=== PATIENT | female | born 1960 | race Caucasian/White ===

== ENCOUNTER 2021-01-27 15:10 | Emergency (ER) | payer OTHER ==
[2021-01-27 15:20] VITALS: BP 182/77; PULSE 72; O2SAT 98
--- NOTE | 2021-01-27 15:48 | ERPHSYRPT ---
- History of Present Illness Time Seen by Provider: 01/27/21 15:20 Source: patient Exam Limitations: no limitations Patient Subjective Stated Complaint: PT states "I work at [employer] and a large cart fell over on my left foot this mornig around 10 am." Triage Nursing Assessment: Pt presented alert and oriented X 3, skin pwd pt ambulates with a limp, left dorsal foot slight swelling and bruising noted. tenderness to touch. Physician History: Patient is a 60-year-old female presents to our ED as a referral from her employer for evaluation of pain to the dorsum of her left foot. Patient works at [employer]. At approximately 1030 this morning patient states a heavy cart rolled over her left foot. Patient did not immediately seek medical attention. Patient's foot is now swollen bruised and tender. Patient is concerned she may have a fracture. No other injuries reported. Pain described as an ache that is well localized. No radiation. Pain worse with palpation and weightbearing. Patient voices no other complaints or concerns at this time. Method of Injury: direct blow Occurred: this morning Quality: constant Severity of Pain-Max: moderate Severity of Pain-Current: mild Lower Extremities Pain: foot: left Modifying Factors: Improves With: movement Associated Symptoms: none Allergies/Adverse Reactions: Penicillins Allergy (Verified 01/28/16 06:15) Sulfa (Sulfonamide Antibiotics) Allergy (Verified 01/28/16 06:15) Home Medications: Multivit with Calcium,Iron,Min [Womens Multiple Vitamins] 1 each PO DAILY 01/28/16 [History] Hx Tetanus, Diphtheria Vaccination/Date Given: Yes Hx Influenza Vaccination/Date Given: Yes Hx Pneumococcal Vaccination/Date Given: No Immunizations Up to Date: Yes Travel Risk - International Travel Have you traveled outside of the country in past 3 weeks: No - Coronavirus Screening Are you exhibiting any of the following symptoms?: No Close contact with a COVID-19 positive Pt in past 14-21 Days: No - Vaccine Status Have you recieved a Covid-19 vaccination: Yes [employer]: [facility] - Vaccination Dates Date of 2cond Vaccination (if applicable): - Review of Systems Constitutional: No Symptoms, No Fever, No Chills Eyes: No Symptoms Ears, Nose, & Throat: No Symptoms Respiratory: No Symptoms, No Cough, No Dyspnea Cardiac: No Symptoms, No Chest Pain, No Edema, No Syncope Abdominal/Gastrointestinal: No Symptoms, No Abdominal Pain, No Nausea, No Vomiting, No Diarrhea Genitourinary Symptoms: No Symptoms, No Dysuria Musculoskeletal: No Symptoms, No Back Pain, No Neck Pain Skin: No Symptoms, No Rash Neurological: No Symptoms, No Dizziness, No Focal Weakness, No Sensory Changes Psychological: No Symptoms Endocrine: No Symptoms Hematologic/Lymphatic: No Symptoms Immunological/Allergic: No Symptoms All Other Systems: Reviewed and Negative - Past Medical History Pertinent Past Medical History: Yes Neurological History: No Pertinent History ENT History: No Pertinent History Cardiac History: No Pertinent History Respiratory History: COPD, Sleep Apnea Endocrine Medical History: No Pertinent History Musculoskeletal History: No Pertinent History GI Medical History: Hernia, Other History: No Pertinent History Psycho-Social History: No Pertinent History Female Reproductive Disorders: No Pertinent History, Other Other Medical History: states she has a history of benign throat growths removed ten years ago - Past Surgical History Past Surgical History: Yes Neuro Surgical History: No Pertinent History Cardiac: No Pertinent History Respiratory: No Pertinent History Gastrointestinal: No Pertinent History Genitourinary: No Pertinent History Female Surgical History: Hysterectomy Other Surgical History: pt states she had polyps removed from her vocal cords in 2001. Breast reduction - Social History Smoking Status: Current every day smoker How long have you smoked: years Exposure to second hand smoke: Yes Drug Use: none Patient Lives Alone: Yes - Female History Hx Now: No - Nursing Vital Signs Nursing Vital Signs: Initial Vital Signs Temperature 97.7 F 01/27/21 15:16 Pulse Rate 72 01/27/21 15:16 Respiratory Rate 20 01/27/21 15:16 Blood Pressure 182/77 01/27/21 15:16 O2 Sat by Pulse Oximetry 98 01/27/21 15:16 Pain Scale Pain Intensity 7 - Physical Exam General Appearance: no apparent distress, alert Eyes, Ears, Nose, Throat Exam: normal ENT inspection, TMs normal, pharynx normal, moist mucous membranes Neck Exam: normal inspection, non-tender, supple, full range of motion Cardiovascular/Respiratory Exam: chest non-tender, normal breath sounds, regular rate/rhythm, heart sounds normal, no respiratory distress Gastrointestinal/Abdominal Exam: non-tender, soft, No guarding, No tenderness Back Exam: normal inspection, normal range of motion, No vertebral tenderness Hips Exam: bilateral: non-tender, normal inspection, normal range of motion, no evidence of injury Legs Exam: bilateral leg: non-tender, normal inspection, normal range of motion, no evidence of injury Knees Exam: bilateral knee: non-tender, normal inspection, normal range of motion, no evidence of injury Ankle Exam: bilateral ankle: non-tender, normal inspection, normal range of motion, no evidence of injury Foot Exam: right foot: non-tender, normal inspection, normal range of motion, no evidence of injury, left foot: ecchymosis, pain, soft tissue tenderness, swelling, other (Left foot neurovascular intact distally. Compartments are soft. Cap refill less than 2 seconds. Sensorimotor function appear to be intact as well. Dorsum of the foot is swollen with ecchymosis and tenderness.) Neuro/Tendon Exam: normal sensation, normal motor functions, normal tendon functions Mental Status Exam: alert, oriented x 3, cooperative Skin Exam: normal color, warm, dry SpO2 Interpretation: normal SpO2: 98 O2 Delivery: Room Air - Course Nursing assessment & vital signs reviewed: Yes - Radiology Exams Foot X-ray Interpretation: Interpreted by me (No fractures or dislocations. No soft tissue abnormalities. There is some osteopenia. There is a heel spur and mild degenerative changes observed on left foot x-ray. ) Ordered Tests: Active Orders 24 hr Category Date Time Status FOOT (MINIMUM 3 VIEWS) Stat Exams 01/27/21 15:25 Taken - Progress Progress: improved Progress Note: Patient reassessed. She feels well. Patient declined pain medication. X-ray negative for fracture dislocation. No indication for further work-up at this time will discharge home. Patient states she will take a few days off of work. Patient agrees to follow-up with her primary care doctor within 48 hours for reevaluation. Portions of this note were created with voice recognition technology. There may be grammatical, spelling, punctuation or sound alike errors 01/27/21 16:36 Counseled pt/family regarding: diagnosis, need for follow-up, rad results - Departure Departure Disposition: Home Clinical Impression: Contusion of foot, left Condition: Stable Critical Care Time: No Referrals: JAUN DELGADO, MARLEN [Primary Care Provider] - Additional Instructions: Discharge/Care Plan MARK ERIC was seen on 01/27/21 in the Emergency Room. The patient was counseled regarding Diagnosis,Lab results, Imaging studies, need for follow up and when to return to the Emergency Room. Prescriptions given: Discharge Note I have spoken with the patient and/or caregivers. I have explained the patient's condition, diagnosis and treatment plan based on the information available to me at this time. I have answered the patient's and/or caregiver's questions and addressed any concerns. The patient and/or caregivers have as good understanding of the patient's diagnosis, condition and treatment plan as can be expected at this point. The vital signs have been stable. The patient's condition is stable and appropriate for discharge from the emergency department. The patient will pursue further outpatient evaluation with the primary care physician or other designated or consulting physician as outlined in the discharge instructions. The patient and/or caregivers are agreeable to this plan of care and follow-up instructions have been explained in detail. The patient and/or caregivers have received these instruction. The patient/and or caregivers are aware that any significant change in condition or worsening of symptoms should prompt an immediate return to this or the closest emergency department or call 911.
--- NOTE | 2021-01-27 16:43 | XRAY ---
Indication: Fracture. Comparison: None 3 nonweightbearing views left foot demonstrates mild osteopenia, small heel spurs, tiny 5th metatarsal base accessory ossicle, and small cuboid accessory ossicle. No other bony, articular, or soft tissue abnormalities.
[2021-01-27 21:14] LABS: Amphetamine,Urine NEGATIVE (NEGATIVE); Barbiturate,Urine NEGATIVE (NEGATIVE); Benzodiazepine,Urine NEGATIVE (NEGATIVE); Cocaine,Urine NEGATIVE (NEGATIVE); Methadone,Urine NEGATIVE (NEGATIVE); Opiate,Urine NEGATIVE (NEGATIVE); PCP,Urine NEGATIVE (NEGATIVE); THC,Urine NEGATIVE (NEGATIVE)
== END 2021-01-27 17:17 | disposition home or self-care (01) ==
LOC: ED 15:10
DX: S90.32XA Contusion of left foot, initial encounter (principal); M79.672 Pain in left foot; W20.8XXA Other cause of strike by thrown, projected or falling object, initial encounter; Y92.63 Factory as the place of occurrence of the external cause
CPT/HCPCS: 73630; 80307; 99283